=== PATIENT | female | born 1945 | race Caucasian/White ===

== ENCOUNTER 2017-03-26 07:49 | Emergency (ER) | payer MEDICARE ==
[~2017-03-26] VITALS: Ht 165.1 cm; Wt 90.0 kg
[~2017-03-26 07:49] MED LIST: FLUARIX QUADRIV1 INJ IM
[2017-03-26] MEDS ORDERED: NORCO1 TA1 PO (09:01)
[2017-03-26 10:05] VITALS: BP 218/92
== END 2017-03-26 10:05 | disposition left against medical advice (07) ==
LOC: ED 07:49
PROC: 2W3GX1Z Immobilization of Right Thumb using Splint (ICD-10-PCS; principal; 2017-03-26)
DX: S52.501A Unspecified fracture of the lower end of right radius, initial encounter for closed fracture (principal); W17.81XA Fall down embankment (hill), initial encounter; Y93.89 Activity, other specified; Y92.481 Parking lot as the place of occurrence of the external cause; Z91.19 Patient's noncompliance with other medical treatment and regimen; I10 Essential (primary) hypertension

== ENCOUNTER 2019-02-08 09:54 | Inpatient (IN) | payer MEDICARE ==
[2019-02-08] VITALS (10 sets, daily range): BP systolic 92–125; BP diastolic 47–87
[~2019-02-08] VITALS: Ht 165.1 cm; Wt 106.4 kg
[~2019-02-08 09:54] MED LIST changes: +NORCO1 TA1 PO
[2019-02-08 10:41] LABS: HEMATOCRIT 49.4 % (37.0-47.0); HEMOGLOBIN 17.5 g/dl (12.0-16.0); IMMATURE GRANULOCYTES 1.2 % (0.0-5.0); MEAN CELL VOLUME 86.8 fL CALC (80.0-100.0); MEAN CORPUSCULAR HGB 30.8 pG CALC (26.0-32.0); MEAN CORPUSCULAR HGB CONC 35.4 g/L CALC (32.0-36.0); NEUT# 24.76 thou/uL (2.00-7.15); RED BLOOD COUNT 5.69 mill/uL (4.20-5.60); RED CELL DISTRI WIDTH 12.9 % (11.5-15.5)
[2019-02-08 11:00] LABS: ALBUMIN 3.7 g/dL (3.2-5.0); BILIRUBIN, TOTAL 0.8 mg/dL (0.0-1.4); POTASSIUM 2.7 mmol/l (3.5-5.1); TOTAL PROTEIN 6.9 g/dL (6.3-8.2)
[2019-02-08 16:07] LABS: CREATININE 1.9 mg/dL (0.5-1.0)
[2019-02-08 16:08] LABS: POTASSIUM 2.4 mmol/l (3.5-5.1)
[2019-02-08 21:40] LABS: CREATININE 1.6 mg/dL (0.5-1.0)
[2019-02-08 21:42] LABS: POTASSIUM 2.9 mmol/l (3.5-5.1)
[2019-02-09] VITALS (20 sets, daily range): BP systolic 88–121; BP diastolic 43–65
[2019-02-09 01:14] LABS: URINE BILIRUBIN - DIPSTICK NEGATIVE (NEGATIVE); URINE BLOOD DIPSTICK LARGE (NEGATIVE); URINE GLUCOSE - DIPSTICK NEGATIVE (NEGATIVE); URINE KETONE NEGATIVE (NEGATIVE); URINE LEUK ESTERASE TRACE (NEGATIVE); URINE NITRITE - DIPSTICK NEGATIVE (Negative); URINE PROTEIN - DIPSTICK TRACE mg/dL (NEG-TRACE); URINE SPECIFIC GRAVITY 1.015; URINE UROBILINOGEN - DIPSTICK 0.2 E.U./dL (0.2)
[2019-02-09 01:16] LABS: URINE COLOR DK. YELLOW
[2019-02-09 01:17] LABS: URINE EPITHELIAL CELLS FEW EPI/hpf (0-FEW); URINE MUCUS FEW hpf (NONE-FEW); URINE WBC 0-2 WBC/hpf (0-5)
[2019-02-09 05:57] LABS: MEAN CELL VOLUME 89.4 fL CALC (80.0-100.0); MEAN CORPUSCULAR HGB 30.5 pG CALC (26.0-32.0); MEAN CORPUSCULAR HGB CONC 34.1 g/L CALC (32.0-36.0); RED BLOOD COUNT 4.33 mill/uL (4.20-5.60)
[2019-02-09 06:07] LABS: HEMATOCRIT 38.7 % (37.0-47.0); HEMOGLOBIN 13.2 g/dl (12.0-16.0)
[2019-02-09 06:13] LABS: ANION GAP 8 (6-22 (CALC)); BUN 58 mg/dL (8-23); BUN/CREATININE RATIO 49 (12-20 (CALC)); CALCULATED LDLCHOLESTEROL 86 mg/dL (62-129 (CALC)); CARBON DIOXIDE 25 mmol/l (22-30); CHLORIDE 105 mmol/l (95-108); CHOLESTEROL HDL RATIO 6.5 (<4.4 (CALC)); CREATININE 1.2 mg/dL (0.5-1.0); GFR 44 ML/MIN (>=60 (CALC)); GFR FOR AFR.AMER. 53 ML/MIN (>=60 (CALC)); HDL CHOLESTEROL 22 mg/dL (>=40); SODIUM 136 mmol/l (137-146); TOTAL CHOLESTEROL 141 mg/dl (0-199); TOTAL TRIGLYCERIDES 168 mg/dl (30-149); VLDL CHOLESTROL 34 mg/dl (0-48 (CALC))
[2019-02-10] VITALS (10 sets, daily range): BP systolic 98–143; BP diastolic 46–71
[2019-02-10 04:44] LABS: HEMATOCRIT 36.2 % (37.0-47.0); HEMOGLOBIN 12.2 g/dl (12.0-16.0); MEAN CELL VOLUME 90.5 fL CALC (80.0-100.0); MEAN CORPUSCULAR HGB 30.5 pG CALC (26.0-32.0); MEAN CORPUSCULAR HGB CONC 33.7 g/L CALC (32.0-36.0); RED CELL DISTRI WIDTH 13.2 % (11.5-15.5)
[2019-02-10 05:04] LABS: ANION GAP 7 (6-22 (CALC)); BUN 37 mg/dL (8-23); BUN/CREATININE RATIO 47 (12-20 (CALC)); CARBON DIOXIDE 22 mmol/l (22-30); CHLORIDE 109 mmol/l (95-108); CREATININE 0.8 mg/dL (0.5-1.0); GFR > 60 ML/MIN (>=60 (CALC)); GFR FOR AFR.AMER. > 60 ML/MIN (>=60 (CALC)); POTASSIUM 3.3 mmol/l (3.5-5.1); SODIUM 135 mmol/l (137-146)
[2019-02-11 05:02] VITALS: BP 145/64
[2019-02-11 08:10] VITALS: BP 128/59
[2019-02-11 13:15] VITALS: BP 115/67
[2019-02-11 16:00] VITALS: BP 133/49
[2019-02-11 19:06] VITALS: BP 170/62
[2019-02-11 22:00] VITALS: BP 161/73
[2019-02-12 00:25] VITALS: BP 142/65
[2019-02-12 05:00] VITALS: BP 152/64
[2019-02-12 07:22] VITALS: BP 179/70
[2019-02-12 10:22] VITALS: BP 103/59
[2019-02-12 10:53] LABS: HEMATOCRIT 37.9 % (37.0-47.0); HEMOGLOBIN 12.3 g/dl (12.0-16.0); MEAN CELL VOLUME 92.2 fL CALC (80.0-100.0); MEAN CORPUSCULAR HGB 29.9 pG CALC (26.0-32.0); MEAN CORPUSCULAR HGB CONC 32.5 g/L CALC (32.0-36.0); RED BLOOD COUNT 4.11 mill/uL (4.20-5.60); RED CELL DISTRI WIDTH 14.1 % (11.5-15.5)
[2019-02-12 11:10] LABS: BUN 21 mg/dL (8-23); BUN/CREATININE RATIO 32 (12-20 (CALC)); CARBON DIOXIDE 23 mmol/l (22-30); CHLORIDE 107 mmol/l (95-108); CREATININE 0.7 mg/dL (0.5-1.0); GFR > 60 ML/MIN (>=60 (CALC)); GFR FOR AFR.AMER. > 60 ML/MIN (>=60 (CALC)); SODIUM 138 mmol/l (137-146)
[2019-02-12 11:11] LABS: ANION GAP 13 (6-22 (CALC)); MAGNESIUM 1.3 mg/dL (1.6-2.3); POTASSIUM 4.9 mmol/l (3.5-5.1)
[2019-02-12 17:00] VITALS: BP 148/63
[2019-02-12 18:57] VITALS: BP 148/60
[2019-02-13 04:00] VITALS: BP 157/79
[2019-02-13 05:29] LABS: HEMATOCRIT 39.7 % (37.0-47.0); HEMOGLOBIN 12.9 g/dl (12.0-16.0); MEAN CELL VOLUME 94.5 fL CALC (80.0-100.0); MEAN CORPUSCULAR HGB 30.7 pG CALC (26.0-32.0); MEAN CORPUSCULAR HGB CONC 32.5 g/L CALC (32.0-36.0); NEUT# 11.89 thou/uL (2.00-7.15); RED BLOOD COUNT 4.2 mill/uL (4.20-5.60); RED CELL DISTRI WIDTH 14.4 % (11.5-15.5)
[2019-02-13 06:40] LABS: BUN 22 mg/dL (8-23); BUN/CREATININE RATIO 32 (12-20 (CALC)); CHLORIDE 108 mmol/l (95-108); CREATININE 0.7 mg/dL (0.5-1.0); GFR > 60 ML/MIN (>=60 (CALC)); GFR FOR AFR.AMER. > 60 ML/MIN (>=60 (CALC)); POTASSIUM 4.7 mmol/l (3.5-5.1); SODIUM 139 mmol/l (137-146)
[2019-02-13 06:43] LABS: ANION GAP 8 (6-22 (CALC)); CARBON DIOXIDE 28 mmol/l (22-30); MAGNESIUM 2.1 mg/dL (1.6-2.3)
[2019-02-13 07:01] VITALS: BP 170/73
[2019-02-13 10:20] VITALS: BP 158/78
[2019-02-13 15:04] VITALS: BP 160/84
[2019-02-13 16:14] VITALS: BP 149/68
[2019-02-13 19:55] VITALS: BP 136/74
[2019-02-14 04:45] VITALS: BP 144/82
[2019-02-14 04:51] LABS: HEMATOCRIT 37.9 % (37.0-47.0); HEMOGLOBIN 12.5 g/dl (12.0-16.0); IMMATURE GRANULOCYTES 4.7 % (0.0-5.0); MEAN CELL VOLUME 93.3 fL CALC (80.0-100.0); MEAN CORPUSCULAR HGB 30.8 pG CALC (26.0-32.0); NEUT# 10.49 thou/uL (2.00-7.15); RED BLOOD COUNT 4.06 mill/uL (4.20-5.60); RED CELL DISTRI WIDTH 14.3 % (11.5-15.5)
[2019-02-14 05:13] LABS: ANION GAP 8 (6-22 (CALC)); BUN 21 mg/dL (8-23); BUN/CREATININE RATIO 28 (12-20 (CALC)); CARBON DIOXIDE 28 mmol/l (22-30); CHLORIDE 108 mmol/l (95-108); CREATININE 0.8 mg/dL (0.5-1.0); GFR > 60 ML/MIN (>=60 (CALC)); GFR FOR AFR.AMER. > 60 ML/MIN (>=60 (CALC)); POTASSIUM 4.8 mmol/l (3.5-5.1); SODIUM 139 mmol/l (137-146)
[2019-02-14 07:08] VITALS: BP 142/74
[2019-02-14 15:35] VITALS: BP 123/65
[2019-02-14 19:41] VITALS: BP 121/63
[2019-02-15 04:42] VITALS: BP 138/50
[2019-02-15 08:00] VITALS: BP 130/50
[2019-02-15 19:18] VITALS: BP 148/72
[2019-02-16 03:50] VITALS: BP 125/65
[2019-02-16 07:30] VITALS: BP 143/52
[2019-02-16] MEDS ORDERED: PREDNISONE10 MG PO (16:13)
[2019-02-16] MEDS ORDERED: NYSTOP100000 UNI TOP (16:13)
[2019-02-16] MEDS ORDERED: AMLODIPINE BESYL5 MG PO (16:13)
[2019-02-16 17:00] VITALS: BP 132/59
== END 2019-02-16 18:18 | DRG 871 ==
LOC: ED 09:54 → ED-I 12:15 → ED 12:31 → ICU 12:32 → MS2 02-11 13:06
PROVIDERS: Emergency Medicine; Nurse Practitioner Family; ADMIT Internal Medicine; ATTEND Internal Medicine
DX: A41.9 Sepsis, unspecified organism (principal); J18.9 Pneumonia, unspecified organism; N17.9 Acute kidney failure, unspecified; E87.2 Acidosis; L97.929 Non-pressure chronic ulcer of unspecified part of left lower leg with unspecified severity; L97.919 Non-pressure chronic ulcer of unspecified part of right lower leg with unspecified severity; J44.0 Chronic obstructive pulmonary disease with (acute) lower respiratory infection; J44.1 Chronic obstructive pulmonary disease with (acute) exacerbation; L89.322 Pressure ulcer of left buttock, stage 2; L89.312 Pressure ulcer of right buttock, stage 2; E87.6 Hypokalemia; E86.0 Dehydration; I87.8 Other specified disorders of veins; F17.200 Nicotine dependence, unspecified, uncomplicated; B37.2 Candidiasis of skin and nail; L30.4 Erythema intertrigo; L60.2 Onychogryphosis; E66.9 Obesity, unspecified; E83.42 Hypomagnesemia; G47.00 Insomnia, unspecified; M62.81 Muscle weakness (generalized); I10 Essential (primary) hypertension; R74.8 Abnormal levels of other serum enzymes; Z68.39 Body mass index [BMI] 39.0-39.9, adult; Z59.1 Inadequate housing
CPT/HCPCS: J3370; J3475